=== PATIENT | male | born 1940 | race Caucasian/White ===

== ENCOUNTER 2018-02-19 08:02 | Day surgery (SDC) | payer OTHER, BC ==
[2018-02-18 14:19] VITALS: BMI 26.2
[2018-02-19] MEDS ORDERED: PROPOFOL 20 ML ONE ×2 (08:11)
[2018-02-19] MEDS ORDERED: LIDOCAINE HCL/PF 2% SDV 5ML VIAL ONE (08:12)
[2018-02-19 10:11] VITALS: TEMP 97.9
[2018-02-19 10:16] VITALS: BP 128/76; PULSE 77
--- NOTE | 2018-02-20 12:11 | PATH ---
Surgical Pathology Report Patient Name: ROBERTO BOX [facility]. Rec. #: [id number] /Age/Gender: 1940 (Age: 77) / M Account: [id number] Location: [facility]-ENDOSCOPY Taken: 02/19/2018 Received: 02/19/2018 Reported: 02/20/2018 Physicians: Jam Nance M.D. Specimen(s) Received A: BX DUODENUM B: BX ANTRUM Clinical History GERD Postop diagnosis: Gastric ulcers, rule out celiac disease, rule out H. Pylori, duodenitis Final Diagnosis A. DUODENUM, BIOPSY: DUODENAL MUCOSA WITH NO PATHOLOGIC FINDINGS. Note: Features suggestive of celiac disease are not identified in this biopsy. B. ANTRUM, BIOPSY: MILD CHRONIC GASTRITIS. IMMUNOSTAIN IS NEGATIVE FOR H. PYLORI ORGANISMS. Electronically Signed Carmen Woods M.D. Gross Description A. Received in formalin, labeled "duodenum" is a garcia, irregular portion of soft tissue measuring 0.3 cm. in greatest dimension. The specimen is submitted in toto in one cassette. B. Received in formalin, labeled "antrum" is a garcia, irregular portion of soft tissue measuring 0.3 cm. in greatest dimension. The specimen is submitted in toto in one cassette. 02/19/2018 saudi02/19/2018
== END 2018-02-19 10:19 | disposition home or self-care (01) ==
LOC: FASU-ENDO 08:02
PROVIDERS: ATTEND Internal Medicine Gastroenterology
PROC: 0DB98ZX Excision of Duodenum, Via Natural or Artificial Opening Endoscopic, Diagnostic (ICD-10-PCS; principal; 2018-02-19 09:20)
PROC: 0DB68ZX Excision of Stomach, Via Natural or Artificial Opening Endoscopic, Diagnostic (ICD-10-PCS; 2018-02-19 09:20)
DX: K92.1 Melena (principal); K29.50 Unspecified chronic gastritis without bleeding; K29.80 Duodenitis without bleeding; K25.9 Gastric ulcer, unspecified as acute or chronic, without hemorrhage or perforation
CPT/HCPCS: 88305-TC; 88342-TC

== ENCOUNTER 2018-04-13 08:06 | Day surgery (SDC) | payer OTHER, BC ==
[2018-04-06 15:23] VITALS: BMI 26.1
[2018-04-13] MEDS ORDERED: PROPOFOL 20 ML ONE ×2 (08:12)
[2018-04-13] MEDS ORDERED: LIDOCAINE HCL/PF 2% SDV 5ML VIAL ONE (08:12)
[2018-04-13 10:42] VITALS: TEMP 97.5
[2018-04-13 11:28] VITALS: BP 132/79; PULSE 64
== END 2018-04-13 11:20 | disposition home or self-care (01) ==
LOC: FASU-ENDO 08:06
PROVIDERS: ATTEND Internal Medicine Gastroenterology
PROC: 0DJD8ZZ Inspection of Lower Intestinal Tract, Via Natural or Artificial Opening Endoscopic (ICD-10-PCS; principal; 2018-04-13 10:15)
DX: Z12.11 Encounter for screening for malignant neoplasm of colon (principal); K57.30 Diverticulosis of large intestine without perforation or abscess without bleeding